=== PATIENT | female | born 1975 | race Hispanic/Latino ===

== ENCOUNTER → 2024-09-12 | Outpatient (CLI) | payer BC, SELFPAY ==
[~2024-09-12] MED LIST: GADOTERATE MEGLUMINE 10 MMOL/20 ML VIAL IV ONE
--- NOTE | 2024-09-13 10:22 | HMCIMG ---
EXAM: MR Brain And Orbits Without and With IV Contrast. CLINICAL HISTORY: Left optic nerve injury. TECHNIQUE: Multiplanar multi-sequence MRI of the brain and orbits. CONTRAST: 18 ml Clariscan. COMPARISON: None provided. FINDINGS: Brain: No abnormal parenchymal signal is present. No evidence of acute cortical infarction, hemorrhage, mass or mass effect. The ventricular system is normal in size, shape, and contour. No hydrocephalus. Bilateral basal ganglia, internal capsules and thalami are normal. The brainstem is normal. No abnormal extra-axial fluid collection is present. The marrow signal within the skull base and calvarium is intact. The paranasal sinuses and mastoid air cells are clear. Orbits: The bilateral eye globes, optic nerves, orbital apex, optic chiasm and optic tracts are within normal limits. The bilateral extraocular muscles and retro-orbital fat are grossly unremarkable. Normal bone marrow signals, no acute fracture. IMPRESSION: 1. No acute intracranial or intraorbital abnormality or mass. No abnormal post-contrast enhancement. /[place]
== END | disposition home or self-care (01) ==
LOC: RAH 14:14
PROVIDERS: ATTEND Family Medicine
DX: S04.012 Injury of optic nerve, left eye (principal); B02.39 Other herpes zoster eye disease; X58.XXXD Exposure to other specified factors, subsequent encounter
CPT/HCPCS: 70553; A9575